=== PATIENT | male | born 1935 | race Caucasian/White ===

== ENCOUNTER 2016-11-30 19:30 | Outpatient (CLI) | payer MEDICARE, MEDICAID | END 2016-11-30 19:31 | disposition home or self-care (01) | LOC: SLEEPLAB 19:30 | PROVIDERS: ATTEND Internal Medicine | DX: G47.33 Obstructive sleep apnea (adult) (pediatric) (principal); E11.9 Type 2 diabetes mellitus without complications; E66.9 Obesity, unspecified; I10 Essential (primary) hypertension; R06.83 Snoring | CPT/HCPCS: 95811 ==

== ENCOUNTER 2017-07-24 09:45 | Emergency (ER) | payer MEDICARE, MEDICAID ==
--- NOTE | 2017-07-24 10:52 | RAD ---
LEFT HIP TWO VIEWS: 07/24/2017 HISTORY: Left hip pain for two days. COMPARISON: None. FINDINGS: There is mild superior joint space narrowing with lateral acetabular osteophyte formation. There is no displaced fracture or evidence of dislocation. IMPRESSION: Degenerative joint disease with no acute fracture or dislocation seen. POS: [facility]
[2017-07-24] MEDS ORDERED: Lorazepam 2 MG/ML VIAL ONE (11:28)
[2017-07-24] MEDS ORDERED: Dexamethasone 4 mg/ml Vial ONE (11:29)
[2017-07-24] MEDS ORDERED: Morphine 4 MG/ML VIAL ONE (11:29)
[2017-07-24] MEDS ORDERED: Ondansetron ODT 4 MG TAB ONE (11:29)
[2017-07-24 11:31] LABS: Hemoglobin 13.8 g/dL (14.0-18.0); Mean Corpuscular HGB CONC 32.7 g/dL (32.0-36.0); Mean Corpuscular Hemoglobin 29.5 pg (27.0-31.0); Mean Corpuscular Volume 90.4 fl (80.0-94.0); Mean Platelet Volume 7.5 fL (7.4-10.4); Platelet Count 167 thou/uL (130-400); RBC Distribution Width 12.7 % (11.5-14.5); Red Blood Cell (RBC) Count 4.68 mill/uL (4.70-6.10); White Blood Cell (WBC) Count 9.2 thou/uL (4.8-10.8)
[2017-07-24 11:51] LABS: Band 9 % (5-11); Lymphocytes 22 % (21-51); MDiff Complete? YES; Monocytes 3 % (0-10); Neutrophil 66 % (42-75); PLT Morphology Comment Appears Adequate; RBC Morphology Normal
--- NOTE | 2017-07-24 11:54 | CT ---
CT LUMBAR SPINE: TECHNIQUE: Multiple axial tomograms were obtained through the lumbar spine with multiplanar reconstruction. INDICATION: Left hip and back pain. FINDINGS: Lumbar vertebrae maintain height. Moderate degenerative disk changes are seen throughout the lumbar spine with vacuum phenomenon and gas in the disk space seen at L1-2, L2-3, L3-4, and L5-S1. Degenera tive osteophytes in the lumbar vertebrae. Prominent facet hypertrophy throughout. Slight retrolisthesis at L3-4 and mild anterolisthesis at L4-5 is noted. At L1-2, there is a broad-based disk bulge flattening the thecal sac. This is asymmetric to the righ t with right foraminal and lateral extension. A disk-osteophyte complex projects laterally on both s ides, more prominent on the right. Facet hypertrophy. Mild central canal stenosis. At L2-3, there is a mild retrolisthesis as described above with degenerative disk change. Diffuse di sk bulge abuts the thecal sac. Facet and ligamentous hypertrophy. Mild to moderate central canal st enosis. At L3-4, more pronounced broad-based disk bulge flattens the thecal sac. Facet and ligamentous hyper trophy is prominent. These changes result in moderate to severe central canal stenosis. Bilateral f oraminal encroachment due to diffuse disk bulge and hypertrophic change. At L4-5, mild anterolisthesis. Associated diffuse disk bulge. Prominent facet hypertrophy. Moderat e to severe central canal stenosis. Bilateral foraminal narrowing. At L5-S1, mild diffuse disk bulge with degenerative disk change. Facet hypertrophy. Mild central ca nal stenosis. Mild foraminal narrowing. IMPRESSION: Multilevel degenerative change of the lumbar spine with central canal stenosis as described at each l evel above. POS: [facility]
[2017-07-24 11:57] LABS: ALT (SGPT) 28 U/L (8-55); AST (SGOT) 19 U/L (5-34); Albumin 3.8 g/dL (3.4-4.8); Alkaline Phosphatase 100 U/L (40-150); Anion Gap 12 mmol/L (10-20); BUN (Urea Nitrogen) 27 mg/dL (8.4-25.7); Bilirubin, Total 0.6 mg/dL (0.2-1.2); Calc. Creatinine Clearance 0 mL/min (70-130); Carbon Dioxide 24 mmol/L (23-31); Chloride 105 mmol/L (98-107); Estimated GFR-MDRD 86; Glucose 139 mg/dL (83-110); Potassium 3.9 mmol/L (3.5-5.1); Protein, Total 6.8 g/dL (5.8-8.1); Sodium 137 mmol/L (136-145)
== END 2017-07-24 12:20 | disposition home or self-care (01) ==
LOC: ERS 09:45
DX: M51.26 Other intervertebral disc displacement, lumbar region (principal); E11.9 Type 2 diabetes mellitus without complications; I10 Essential (primary) hypertension; Z86.73 Personal history of transient ischemic attack (TIA), and cerebral infarction without residual deficits; Z79.899 Other long term (current) drug therapy; Z79.84 Long term (current) use of oral hypoglycemic drugs; Z79.01 Long term (current) use of anticoagulants
CPT/HCPCS: 72131; 80053; 85007; 85027; 85652; 86140; 96374; 96375; J1100; J2060; J2270; Q0162

== ENCOUNTER 2017-07-29 14:34 | Emergency (ER) | payer MEDICARE, MEDICAID | END 2017-07-29 15:25 | disposition home or self-care (01) | LOC: ERS 14:34 | DX: M62.830 Muscle spasm of back (principal); I10 Essential (primary) hypertension; E11.42 Type 2 diabetes mellitus with diabetic polyneuropathy; M54.9 Dorsalgia, unspecified; G89.29 Other chronic pain; Z86.73 Personal history of transient ischemic attack (TIA), and cerebral infarction without residual deficits; Z79.84 Long term (current) use of oral hypoglycemic drugs; Z79.01 Long term (current) use of anticoagulants; Z79.899 Other long term (current) drug therapy; V43.52XA Car driver injured in collision with other type car in traffic accident, initial encounter | CPT/HCPCS: 36416; 99284 ==

== ENCOUNTER 2017-08-10 13:16 | Emergency (ER) | payer MEDICARE, MEDICAID ==
--- NOTE | 2017-08-10 16:27 | RAD ---
FOUR VIEWS OF THE LEFT KNEE: 08/10/17 COMPARISON: 02/06/06. HISTORY: Left knee pain after falling this morning. FINDINGS: Four views of the left knee shows no evidence of acute fracture or dislocation. Mild tricompartmental osteophytes are seen consistent with osteoarthritis. No knee effusion is seen. IMPRESSION: Mild left knee osteoarthritis without acute osseous abnormality. POS: [facility]
[2017-08-10 17:10] LABS: #Eosinphils 0.3 thou/uL (0.0-0.7); #Lymphocytes 2.4 thou/uL (1.20-3.40); #Monocytes 0.7 thou/uL (0.11-0.59); #Neutrophils 4.6 thou/uL (1.40-6.50); %Basophils 0.6 % (0.0-1.0); %Eosinophils 3.5 % (0.0-10.0); %Lymphocytes 30.2 % (21.0-51.0); %Monocytes 8.6 % (0.0-10.0); %Neutrophils 57.1 % (42.0-75.0); Hemoglobin 13.4 g/dL (14.0-18.0); Mean Corpuscular HGB CONC 34.8 g/dL (32.0-36.0); Mean Corpuscular Hemoglobin 30.5 pg (27.0-31.0); Mean Corpuscular Volume 87.5 fL (78.0-98.0); Mean Platelet Volume 6.9 fL (7.4-10.4); Platelet Count 170 thou/uL (130-400); RBC Distribution Width 12.2 % (11.5-14.5)
[2017-08-10 17:17] LABS: INR-International Normal Ratio 1.6; PTT 32.8 SEC (22.9-36.1); Prothrombin Time 19.8 SEC (12.0-14.7)
--- NOTE | 2017-08-10 17:24 | CT ---
CT OF THE BRAIN WITHOUT CONTRAST 08/10/17 COMPARISON: 03/04/16 HISTORY: Fall today and hit left face. Patient is on blood thinners. Head trauma. TECHNIQUE: Multiple contiguous axial images were obtained in a CT of the brain without contrast. FINDINGS: There are a few scattered hypodensities in the subcortical and periventricular white matter, likely s econdary to small vessel ischemic disease. No large confluent infarction is seen. There is no evidenc e of hydrocephalus, intracranial hemorrhage or extra-axial fluid collection. The calvarium and overlying soft tissues are unremarkable. The visualized paranasal sinuses and masto id air cells are well aerated. IMPRESSION: No evidence of acute intracranial abnormality. POS: [facility]
[2017-08-10 17:32] LABS: Anion Gap 13 mmol/L (10-20); BUN (Urea Nitrogen) 27 mg/dL (8.4-25.7); Calc. Creatinine Clearance 0 mL/min (70-130); Carbon Dioxide 24 mmol/L (23-31); Chloride 106 mmol/L (98-107); Estimated GFR-MDRD 77; Glucose 139 mg/dL (83-110); Potassium 4.1 mmol/L (3.5-5.1); Sodium 139 mmol/L (136-145)
[2017-08-10] MEDS ORDERED: Bacitracin Zinc 1 Packet ONE (17:36)
== END 2017-08-10 17:51 | disposition home or self-care (01) ==
LOC: ERS 13:16
DX: S00.83XA Contusion of other part of head, initial encounter (principal); S80.02XA Contusion of left knee, initial encounter; S40.022A Contusion of left upper arm, initial encounter; S60.512A Abrasion of left hand, initial encounter; S50.812A Abrasion of left forearm, initial encounter; I10 Essential (primary) hypertension; E11.42 Type 2 diabetes mellitus with diabetic polyneuropathy; M54.9 Dorsalgia, unspecified; G89.29 Other chronic pain; Z86.73 Personal history of transient ischemic attack (TIA), and cerebral infarction without residual deficits; W10.9XXA Fall (on) (from) unspecified stairs and steps, initial encounter; Y93.01 Activity, walking, marching and hiking
CPT/HCPCS: 36415; 70450; 80048; 85025; 85610; 85730; 93005

== ENCOUNTER 2017-10-30 13:09 | Emergency (ER) | payer MEDICARE, MEDICAID ==
[2017-10-30 13:56] LABS: #Eosinphils 0.2 thou/uL (0.0-0.7); #Lymphocytes 1.6 thou/uL (1.20-3.40); #Monocytes 0.7 thou/uL (0.11-0.59); #Neutrophils 5.4 thou/uL (1.40-6.50); %Basophils 0.2 % (0.0-1.0); %Eosinophils 2.1 % (0.0-10.0); %Monocytes 9.1 % (0.0-10.0); %Neutrophils 68.6 % (42.0-75.0); Hemoglobin 13.9 g/dL (14.0-18.0); Mean Corpuscular HGB CONC 34.8 g/dL (32.0-36.0); Mean Corpuscular Hemoglobin 30.6 pg (27.0-31.0); Mean Corpuscular Volume 87.8 fL (78.0-98.0); Mean Platelet Volume 7.6 fL (7.4-10.4); Platelet Count 168 thou/uL (130-400); RBC Distribution Width 12.5 % (11.5-14.5); Red Blood Cell (RBC) Count 4.55 mill/uL (4.70-6.10); White Blood Cell (WBC) Count 7.9 thou/uL (4.8-10.8)
[2017-10-30 14:25] LABS: ALT (SGPT) 28 U/L (8-55); AST (SGOT) 19 U/L (5-34); Albumin 3.6 g/dL (3.4-4.8); Alkaline Phosphatase 101 U/L (40-150); Anion Gap 13 mmol/L (10-20); BUN (Urea Nitrogen) 20 mg/dL (8.4-25.7); Bilirubin, Total 0.9 mg/dL (0.2-1.2); CKMB 2.3 ng/mL (0-6.6); Calc. Creatinine Clearance 0 mL/min (70-130); Calcium 8.8 mg/dL (7.8-10.44); Carbon Dioxide 27 mmol/L (23-31); Chloride 102 mmol/L (98-107); Estimated GFR-MDRD 71; Glucose 278 mg/dL (83-110); Potassium 3.7 mmol/L (3.5-5.1); Protein, Total 6.6 g/dL (5.8-8.1); Sodium 138 mmol/L (136-145); Troponin I Less than 0.010 ng/mL (< 0.028)
--- NOTE | 2017-10-30 14:58 | RAD ---
CHEST ONE VIEW: HISTORY: Chest pain. COMPARISON: 08/14/2013 FINDINGS: The cardiac silhouette is magnified by projection. The pulmonary vasculature is unremarkable. The m ediastinum is midline with aortic calcification. Mild linear and bibasilar atelectasis is stable. N o lobar consolidation or evidence of pneumothorax. Metallic densities over the left upper chest, adj acent to the clavicle, are favored to represent extrinsic artifact. IMPRESSION: 1. Atherosclerosis. 2. Chronic type findings are stable. POS: [facility]
== END 2017-10-30 16:19 | disposition home or self-care (01) ==
LOC: ERS 13:09
DX: R07.9 Chest pain, unspecified (principal); E11.40 Type 2 diabetes mellitus with diabetic neuropathy, unspecified; I10 Essential (primary) hypertension
CPT/HCPCS: 71045; 80053; 82553; 84484; 85025; 93005; 94760

== ENCOUNTER 2017-12-05 12:37 | Emergency (ER) | payer MEDICARE, MEDICAID ==
--- NOTE | 2017-12-05 13:17 | RAD ---
PA VIEW OF CHEST: Date: 12/05/17 INDICATION: Chest pain. COMPARISON: Prior exam dated 07/12/16. FINDINGS: Mild cardiomegaly is stable. Vascular calcification of aortic arch is similar appearing. The lungs ar e clear. No pleural effusion or pneumothorax is evident. No acute osseous abnormality is evident. IMPRESSION: No acute cardiopulmonary abnormality. POS: [facility]
[2017-12-05 13:33] LABS: #Eosinphils 0.2 thou/uL (0.0-0.7); #Lymphocytes 1.9 thou/uL (1.20-3.40); #Monocytes 0.7 thou/uL (0.11-0.59); #Neutrophils 5.7 thou/uL (1.40-6.50); %Basophils 0.5 % (0.0-1.0); %Eosinophils 2.7 % (0.0-10.0); %Lymphocytes 22.1 % (21.0-51.0); %Neutrophils 66.6 % (42.0-75.0); Hemoglobin 13.9 g/dL (14.0-18.0); Mean Corpuscular HGB CONC 33.3 g/dL (32.0-36.0); Mean Corpuscular Hemoglobin 29.7 pg (27.0-31.0); Mean Corpuscular Volume 89.2 fL (78.0-98.0); Mean Platelet Volume 7.5 fL (7.4-10.4); Platelet Count 180 thou/uL (130-400); RBC Distribution Width 12.6 % (11.5-14.5); Red Blood Cell (RBC) Count 4.68 mill/uL (4.70-6.10); White Blood Cell (WBC) Count 8.6 thou/uL (4.8-10.8)
[2017-12-05 14:08] LABS: CKMB 1.5 ng/mL (0-6.6); Troponin I Less than 0.010 ng/mL (< 0.028)
[2017-12-05 14:14] LABS: ALT (SGPT) 27 U/L (8-55); AST (SGOT) 31 U/L (5-34); Albumin 4.1 g/dL (3.4-4.8); Alkaline Phosphatase 98 U/L (40-150); Anion Gap 12 mmol/L (10-20); BUN (Urea Nitrogen) 25 mg/dL (8.4-25.7); Bilirubin, Total 0.9 mg/dL (0.2-1.2); Calc. Creatinine Clearance 0 mL/min (70-130); Calcium 9.1 mg/dL (7.8-10.44); Carbon Dioxide 28 mmol/L (23-31); Chloride 102 mmol/L (98-107); Estimated GFR-MDRD 81; Globulin 3.1 g/dL (2.4-3.5); Glucose 154 mg/dL (83-110); Potassium 4.5 mmol/L (3.5-5.1); Protein, Total 7.2 g/dL (5.8-8.1); Sodium 137 mmol/L (136-145)
[2017-12-05] MEDS ORDERED: Acetaminophen 325 MG TAB ONE (14:53)
== END 2017-12-05 14:59 | disposition home or self-care (01) ==
LOC: ERS 12:37
DX: M25.511 Pain in right shoulder (principal); E11.42 Type 2 diabetes mellitus with diabetic polyneuropathy; I10 Essential (primary) hypertension
CPT/HCPCS: 71046; 80053; 82553; 84484; 85025; 93005

== ENCOUNTER 2018-02-21 13:14 | Emergency (ER) | payer MEDICARE, MEDICAID ==
[2018-02-21] MEDS ORDERED: predniSONE 20 MG TAB ONE (13:45)
== END 2018-02-21 13:50 | disposition home or self-care (01) ==
LOC: ERS 13:14
DX: L25.9 Unspecified contact dermatitis, unspecified cause (principal); E11.9 Type 2 diabetes mellitus without complications; I10 Essential (primary) hypertension
CPT/HCPCS: 99282; J7506

== ENCOUNTER 2018-03-18 15:48 | Emergency (ER) | payer MEDICARE, MEDICAID | END 2018-03-18 17:30 | disposition home or self-care (01) | LOC: ERS 15:48 | DX: T14.8XXA Other injury of unspecified body region, initial encounter (principal); E11.40 Type 2 diabetes mellitus with diabetic neuropathy, unspecified; I10 Essential (primary) hypertension; Z86.711 Personal history of pulmonary embolism; Z79.899 Other long term (current) drug therapy | CPT/HCPCS: 99282 ==

== ENCOUNTER 2018-08-25 11:42 | Emergency (ER) | payer MEDICARE, MEDICAID ==
--- NOTE | 2018-08-25 12:51 | RAD ---
XR Elbow Rt 2 View History: Pain Comparison: None. Findings: No acute fracture or malalignment. Chronic lateral epicondylitis. Mild narrowing of the med ial joint. Lateral radiograph is limited. Impression: No acute definite fracture appreciated of the lateral radiograph is limited. A full elbow exam recommended with repeat lateral radiographs.
--- NOTE | 2018-08-25 12:58 | CT ---
CT Brain WO Con History: Fall Comparison: CT brain August 10, 2017 Findings: Old lacunar infarct. No acute hemorrhage or infarct. Mild atrophy. No midline shift or mass effect. Paranasal sinuses and mastoids are clear. Impression: No acute intracranial abnormality
--- NOTE | 2018-08-25 13:02 | CT ---
CT Cervical Spine WO Con History: Fall Comparison: None. Findings: Mild levoscoliosis of the cervical spine with asymmetric right worst than left facet arthro marisol throughout all levels as well as asymmetric right-sided degenerative disc space disease. Mastoids are clear. Narrowing of the C1/C2 articulation. Multilevel right-sided neural foraminal narrowing due to hypertrophic facet arthropathy. Lung apices are clear. Paraspinal soft tissues are unremarkable. Old right posterior rib fractures. Impression: Severe degenerative changes with multilevel right sided neural foraminal narrowing. No ac [place] fracture.
[2018-08-25] MEDS ORDERED: Morphine 2 MG/ML SYRINGE ONE (14:19)
[2018-08-25] MEDS ORDERED: Ketorolac Tromethamine 30 MG/ML VIAL ONE (14:20)
--- NOTE | 2018-08-25 18:51 | CT ---
Exam: Chest CT without contrast Abdomen CT without contrast Pelvic CT without contrast Limited CT of the thoracic and lumbar spine HISTORY: Fall. Pain. Trauma. Correlation: None COMPARISON: None FINDINGS: Chest CT: Mediastinum: Limited evaluation due to lack of IV contrast. No mass, lymphadenopathy or hematoma. Aorta: Grossly normal caliber. Atherosclerosis. No periaortic fat stranding. Heart: Upper normal heart size. There are coronary artery calcifications. Trachea and central bronchi: Patent Pleural spaces: No pleural effusion Right lung: Dependent atelectatic changes. Left lung:Dependent atelectatic changes. Pneumothorax: None Abdomen CT: Gallbladder: Unremarkable Portal vein: Cannot be assessed due to lack of contrast Solid organs: Limited evaluation due to lack of IV contrast. Grossly no solid organ abnormality. Lymp hadenopathy: No gastrohepatic, retrocrural or periportal lymphadenopathy Kidneys: Nonobstructing 3 mm calculus in the right renal pelvis. Bilaterally no obstructive uropathy Mesentery: No mass, lymphadenopathy, free air or free fluid Alimentary canal: Limited evaluation due to technique. No evidence of bowel obstruction. Small hiatal hernia is noted. Ileocecal junction is normal. Normal caliber appendix. Scattered fecal material in a nondistended, nondilated colon. Diverticulosis, without evidence of diverticulitis. Pelvis CT: No mass, lymphadenopathy, free air or free fluid. Bilateral inguinal hernia containing mesenteric fat . Osseous structures:Old left rib fractures. No acute fractures of the left or right bony thorax. Intac t bony pelvis Limited CT of the thoracic and lumbar spine: Vertebral body heights are maintained. No fracture. IMPRESSION: 1. No posttraumatic change in the chest, abdomen or pelvis. 2. Additional findings as above.
== END 2018-08-25 19:10 | disposition home or self-care (01) ==
LOC: ERS 11:42
DX: S50.01XA Contusion of right elbow, initial encounter (principal); M54.9 Dorsalgia, unspecified; W19.XXXA Unspecified fall, initial encounter
CPT/HCPCS: 70450; 71250; 72125; 74177; 96374; 96375; J1885; J2270

== ENCOUNTER 2018-08-30 14:45 | Outpatient (CLI) | payer MEDICARE, MEDICAID ==
--- NOTE | 2018-08-30 17:37 | MRI ---
MR CERVICAL SPINE WITHOUT CONTRAST: 08/30/18 INDICATION: History of fall with right shoulder pain and left leg pain. COMPARISON: Prior MR cervical spine dated 04/12/16. FINDINGS: No definite acute fracture is evident. The visualized aspects of the posterior fossa are unremarkable appearing. Craniocervical junction demonstrates stable moderate degenerative change. At C2-C3, there is moderate left and mild right facet joint degenerative change with some uncovertebr al hypertrophy inducing stable mil left neural foraminal narrowing. At C3-C4, there is a broad based disc osteophyte complex and facet hypertrophy inducing mild central canal narrowing. There is severe right sided neural foraminal narrowing and mild left neural foramina l narrowing which is stable. At C4-C5, there is a broad based bulge with facet hypertrophy inducing severe right neural foraminal narrowing that is stable. There is mild central canal narrowing due to the broad based bulge. At C5-C6, there is a broad based disc osteophyte complex and facet hypertrophy inducing mild to moder ate right neural foraminal narrowing. This is stable to the prior exam. At C6-C7, there is a broad based disc osteophyte complex inducing mild to moderate left and mild righ t neural foraminal narrowing which is stable to the prior exam. At C7-T1, there is no appreciable central canal or neural foraminal narrowing. IMPRESSION: 1. Stable severe spondylosis of the cervical spine. 2. There is multilevel prominent neural foraminal narrowing, all of which is stable to the prior examination dated 04/12/16. POS: [facility]
--- NOTE | 2018-08-30 17:44 | MRI ---
MRI OF THE LUMBAR SPINE WITHOUT CONTRAST: 08/30/18 INDICATION: History of spinal stenosis and fall. COMPARISON: Prior MR lumbar spine dated 04/12/16. FINDINGS: No acute fracture is evident. There is stable anterolisthesis of L4 on L5. There is stable mild retro listhesis of L2 on L3 and L1 and L2. There is a stable 1 cm cyst involving the lower pole of the left kidney. There is stable levoscoliosis of the lumbar spine. Conus is seen to terminate at T12-L1. At L5-S1, there is a broad based bulge with mild to moderate left and mild right facet joint degenera tive change. There is no appreciable central canal or neural foraminal narrowing. At L4-5, there is advanced facet joint degenerative change and a broad based pseudobulge and loss of disc space height inducing mild to moderate bilateral neural foraminal narrowing, right greater than left. This is stable to prior exam. At L3-4, there is a broad based bulge with facet hypertrophy and ligamentum flavum hypertrophy induci ng moderate central canal narrowing. There is mild to moderate bilateral neural foraminal narrowing. The central canal and neural foraminal narrowing is stable to the prior exam. At L2-3, there is a broad based bulge with facet hypertrophy inducing stable mild central canal narro wing. The broad based bulge is slightly asymmetric to the right inducing mild to moderate right and mild left neural foraminal narrowing which is stable to the prior exam. At L1-L2, there is a broad based bulge with facet hypertrophy inducing mild to moderate right and mil d left neural foraminal narrowing. This is stable to the prior exam. At T12-L1, there is no appreciable central canal or neural foraminal narrowing. IMPRESSION: Stable spondylosis of the lumbar spine with multilevel neural foraminal narrowing and mild central ca nal narrowing as detailed above. POS: [facility]
== END 2018-08-30 14:46 | disposition home or self-care (01) ==
LOC: TBSIIMAG 14:45
PROVIDERS: ATTEND Family Medicine
DX: M47.22 Other spondylosis with radiculopathy, cervical region (principal); M48.02 Spinal stenosis, cervical region; M48.061 Spinal stenosis, lumbar region without neurogenic claudication; M47.816 Spondylosis without myelopathy or radiculopathy, lumbar region
CPT/HCPCS: 72141; 72148

== ENCOUNTER 2018-11-28 15:27 | Emergency (ER) | payer MEDICARE, MEDICAID ==
[2018-11-28] MEDS ORDERED: Ketorolac Tromethamine 30 MG/ML VIAL ONE (16:57)
== END 2018-11-28 17:25 | disposition home or self-care (01) ==
LOC: ERS 15:27
DX: M54.5 Low back pain (principal); E11.9 Type 2 diabetes mellitus without complications; I10 Essential (primary) hypertension; Z79.84 Long term (current) use of oral hypoglycemic drugs; Z86.73 Personal history of transient ischemic attack (TIA), and cerebral infarction without residual deficits; Z86.711 Personal history of pulmonary embolism; Z79.899 Other long term (current) drug therapy
CPT/HCPCS: 96372; 99283; J1885

== ENCOUNTER 2018-12-06 19:44 | Observation (INO) | payer MEDICARE, MEDICAID ==
[2018-12-06] MEDS ORDERED: Morphine 2 MG/ML SYRINGE ONE (21:16)
[2018-12-06 21:40] LABS: #Basophils 0.1 thou/uL (0.0-0.2); #Eosinphils 0.4 thou/uL (0.0-0.7); #Lymphocytes 2.2 thou/uL (1.20-3.40); #Monocytes 0.7 thou/uL (0.11-0.59); #Neutrophils 4.7 thou/uL (1.40-6.50); %Basophils 0.8 % (0.0-1.0); %Eosinophils 4.9 % (0.0-10.0); %Lymphocytes 27.1 % (21.0-51.0); %Monocytes 8.6 % (0.0-10.0); %Neutrophils 58.7 % (42.0-75.0); Hemoglobin 14.1 g/dL (14.0-18.0); Mean Corpuscular HGB CONC 34.5 g/dL (32.0-36.0); Mean Corpuscular Hemoglobin 29.8 pg (27.0-31.0); Mean Corpuscular Volume 86.2 fL (78.0-98.0); Platelet Count 163 thou/uL (130-400); Red Blood Cell (RBC) Count 4.73 mill/uL (4.70-6.10); White Blood Cell (WBC) Count 7.9 thou/uL (4.8-10.8)
--- NOTE | 2018-12-06 21:42 | CT ---
EXAM: CT brain without contrast HISTORY: Fall with head trauma and dizziness COMPARISON: 08/25/2018 TECHNIQUE: Multiple contiguous axial images were obtained and a CT of the brain without contrast. FINDINGS: There are scattered hypodensities in the subcortical and periventricular white matter consi stent with small vessel ischemic disease. There is no evidence of hydrocephalus, intracranial hemorrhage, or extra-axial fluid collection. The calvarium and overlying soft tissues are unremarkable. The visualized paranasal sinuses and masto id air cells are well aerated. IMPRESSION: No evidence of acute intracranial abnormality
--- NOTE | 2018-12-06 21:59 | RAD ---
Exam: Single view of the pelvis HISTORY: Pelvic pain after fall COMPARISON: None FINDINGS: A single view the pelvis shows no evidence of acute fracture or dislocation. No degenerativ e changes seen in either hip. IMPRESSION: No evidence of acute osseous abnormality.
--- NOTE | 2018-12-06 21:59 | RAD ---
EXAM: Single view of the chest HISTORY: Hypertension and fall COMPARISON: 10/30/2017 FINDINGS: Single view of the chest shows a normal sized cardiomediastinal silhouette. Atheroscleroti c calcific lesions are seen in the aorta. There is no evidence of consolidation, mass, or pleural effusion. Degenerative changes are seen in the spine and shoulders. IMPRESSION: No evidence of acute cardiopulmonary disease
--- NOTE | 2018-12-06 22:00 | RAD ---
EXAM: 3 views of the right shoulder HISTORY: Shoulder pain after fall COMPARISON: None FINDINGS: There is no evidence of acute fracture or dislocation. No degenerative changes are present. No soft tissue swelling is seen. The visualized thorax is unremarkable. IMPRESSION: No evidence of acute osseous abnormality.
[2018-12-06 22:02] LABS: ALT (SGPT) 25 U/L (8-55); AST (SGOT) 23 U/L (5-34); Albumin 3.9 g/dL (3.4-4.8); Alkaline Phosphatase 111 U/L (40-110); Anion Gap 12 mmol/L (10-20); BUN (Urea Nitrogen) 24 mg/dL (8.4-25.7); Bilirubin, Total 0.6 mg/dL (0.2-1.2); Calc. Creatinine Clearance 0 mL/min (70-130); Calcium 9.3 mg/dL (7.8-10.44); Carbon Dioxide 25 mmol/L (23-31); Chloride 107 mmol/L (98-107); Estimated GFR-MDRD 84; Globulin 2.7 g/dL (2.4-3.5); Glucose 110 mg/dL (83-110); Lipase 9 U/L (8-78); Magnesium 1.9 mg/dL (1.6-2.6); Potassium 4.1 mmol/L (3.5-5.1); Protein, Total 6.6 g/dL (5.8-8.1); Sodium 140 mmol/L (136-145)
--- NOTE | 2018-12-06 22:53 | PDOC.FPRHP ---
- History of Present Illness Chief Complaint: Fall History of Present Illness: Mr. Mo his an 83 y/o male w/ a PMH significant for frequent falls , AMITA, OA and L4-L5 disc herniation who presents to the ED after an unwitnessed mechanical fall. He states that he was raking the dirt in his yard earlier this afternoon when he suddenly felt himself falling. He denies any feelings of dizziness or loss of consciousness, palpitations, chest pain or shortness of breath, loss of bowel or bladder function or acute intoxication. He states that he suffers from falls quite frequently, and subsequently wears a LifeAlert, which he used to contact local EMS. Per Mr. Mo, his blood pressure was elevated when EMS arrived, but he admits that he was quite agitated and frustrated with himself for falling. He admits to sinus congestion, polyuria, occasional abdominal pain and constipation, but denies visual disturbances, nausea or diarrhea, a post-ictal state, fevers, chills, recent illness, dehydration, medication changes, epistaxis, dysuria, hematochezia or melena or a history of seizures. ED Course: While in the ED, Mr. Mo receive 2 mg of morphine for pain as well as ASA 325 mg PO. He also received an EKG, CT Head, CXR, X-Ray (Shoulder) and a X-Ray ( Pelvis). - Allergies/Adverse Reactions Allergies Allergy/AdvReac Type Severity Reaction Status Date / Time No Known Allergies Allergy Verified 12/07/18 00:45 - Home Medications Medication Instructions Recorded Confirmed Type Lisinopril [Zestril] 5 mg PO DAILY 04/22/15 12/07/18 History metFORMIN HCl 1,000 mg PO BID-WM 04/22/15 12/07/18 History glipiZIDE [Glucotrol XL] 5 mg PO QAM-WM 07/13/16 12/07/18 History Atorvastatin Calcium [Lipitor] 40 mg PO HS tab 07/19/16 12/07/18 Rx Acetaminophen With Codeine 1 tablet PO Q4HR PRN 12/07/18 12/07/18 History [Tylenol with Codeine #3] Cyclobenzaprine [Flexeril] 10 mg PO HS 12/07/18 12/07/18 History Gabapentin [Neurontin] 300 mg PO QAM 12/07/18 12/07/18 History Gabapentin [Neurontin] 600 mg PO QPM 12/07/18 12/07/18 History Lidocaine 5% Patch [Lidoderm 5% 1 patch TD DAILY PRN 12/07/18 12/07/18 History Patch] Naproxen 250 mg PO BID PRN 12/07/18 12/07/18 History Comments: Cymbalta 30 mg daily Gabapentin 300 mg 2 tabs HS ASA 81 mg daily Lantus 5 units daily Metformin ER 500 mg 2tabs BID HCTZ 25 mg 1 tab daily Glipizide XL 5 mg daily Lisinopril 5 mg daily Atorvastatin 40 mg daily - History PMHx: AMITA, L4-L5 Disc Bulge, DMII, HTN, Hx Lacunar Infarct, BPH/Overactive Bladder PSHx: None FHx: Denies Hx of Seizures Social: Denies x3. Retired. - Review of Systems General: denies: fever/chills, night sweats, fatigue Eyes: denies: eye pain, vision changes ENT: denies: nasal congestion, rhinorrhea Respiratory: reports: congestion. denies: cough, shortness of breath Cardiovascular: denies: chest pain, palpitation, edema Gastrointestinal: reports: constipation, abdominal pain. denies: nausea, vomiting, diarrhea, GI bleeding Genitourinary: reports: polyuria. denies: dysuria Skin: reports: itching Musculoskeletal: reports: pain, tenderness, stiffness, arthritis/arthralgias. denies: swelling Neurological: denies: numbness, syncope, seizure, weakness - Vital signs BP: [173/79] HR: [74] RR: [20] Tmax: [98.2] Pox: [95]% on [Room] Wt: [95 kg] - Physical Exam Constitutional: NAD, awake, alert and oriented, well developed HEENT: normocephalic and atraumatic, PERRLA, EOMI, conjunctiva clear, no scleral icterus, grossly normal vision, grossly normal hearing, normal nasal mucosa, MMM, oropharynx clear, good dention Neck: supple, FROM, trachea midline, no LAD Chest: no-tender to palpation, no lesions Heart: RRR, normal S1/S2, no murmurs/rubs/gallops, pulses present Lungs: CTAB, no respiratory distress, good air movement, no rales/rhonchi, no wheezing, no retractions Abdomen: soft, non-tender, bowel sounds present, no masses/distention Musculoskeletal: normal structure, ROM grossly normal Neurological: no focal deficit, CN II-XII intact Skin: no jaundice, other (2 small lacerations on right forearm) Heme/Lymphatic: no unusual bruising or bleeding, no purpura, no petechia, no LAD Psychiatric: normal mood and affect, good judgment and insight, intact recent and remote memory FMR H&P: Results - Labs Result Diagrams: 12/07/18 04:37 12/07/18 04:37 Lab results: WBC 7.9 thou/uL (4.8-10.8) 12/06/18 21:29 Hgb 14.1 g/dL (14.0-18.0) 12/06/18 21:29 Hct 40.8 % (42.0-52.0) L 12/06/18 21: MCV 86.2 fL (78.0-98.0) 12/06/18 21:29 Plt Count 163 thou/uL (130-400) 12/06/18 21:29 Neutrophils % 58.7 % (42.0-75.0) 12/06/18 21:29 Sodium 140 mmol/L (136-145) 12/06/18 21:29 Potassium 4.1 mmol/L (3.5-5.1) 12/06/18 21:29 Chloride 107 mmol/L (98-107) 12/06/18 21:29 Carbon Dioxide 25 mmol/L (23-31) 12/06/18 21:29 BUN 24 mg/dL (8.4-25.7) 12/06/18 21:29 Creatinine 0.87 mg/dL (0.7-1.3) 12/06/18 21:29 Glucose 110 mg/dL (83-110) 12/06/18 21:29 Calcium 9.3 mg/dL (7.8-10.44) 12/06/18 21:29 Total Bilirubin 0.6 mg/dL (0.2-1.2) 12/06/18 21:29 AST 23 U/L (5-34) 12/06/18 21:29 ALT 25 U/L (8-55) 12/06/18 21:29 Alkaline Phosphatase 111 U/L (40-110) H 12/06/18 21:29 B-Natriuretic Peptide 56.8 pg/mL (0-100) 12/06/18 21:29 Serum Total Protein 6.6 g/dL (5.8-8.1) 12/06/18 21:29 Albumin 3.9 g/dL (3.4-4.8) 12/06/18 21:29 Lipase 9 U/L (8-78) 12/06/18 21:29 - EKG Interpretation EKG: NSR - Radiology Interpretation Chest x-ray Status: report reviewed by me ([facility]) Other Status: report reviewed by me (Shoulder X-Ray: [facility] --- Hip X-Ray: [facility]) CT scan - head Status: report reviewed by me ([facility]) FMR H&P: A/P - Plan 1. Mechanical Fall -Patient's Hx of frequent falls concerning -Patient appeared stable in ED - multiple imaging modalities revealed NAF -Syncope appears unlikely at this point - low index of suspicion for neurologic , cardiopulmonary, infectious or toxic etiologies -Deconditioning and weakness from OA, Diabetic Neuropathy and L4-L5 Disc Herniation appear to be most likely causative factors -Physical exam unremarkable -WBC: 7.9 -Trops: < 0.01 -BNP: 57 -UA: Pending -Urine Culture: Pending -Echo: Pending -CTA Head/Neck: Pending -Walking Program -PT/OT Consult: Pending 2. HTN -BP: 173/79 on 12/07 -Restart home medication regimen -Hydralazine 10 mg PO Q4H PRN for BP > 180/110 3. DM2 -POC Glucose: 110 -Mild Sliding Scale Insulin -Restart home medication regimen 4. BPH -Not on any medication for this at this time. No concern for s/e from medication. Code: Full Diet: Consistent Carbohydrate Activity: Ambulate w/ Assist DVT PPx: SCDs and Lovenox 40 mg SC Daily Dispo: Patient admitted to Telemetry Floor for further observation. Await UA, urine culture, echo and CTA Head/Neck results. Expected LOS < 48H FMR H&P: Upper Level - Pertinent history I went and saw pt. He reports no LOC or dizziness or headaches during the event. He reports being shaky after the fall. The above HPI is what was also reported to me by the patient. Made edits above. - Pertinent findings Pt resting in bed. Moves all ext. No focal neuro defecit at this time. Reported having some R. leg numbness in the middle of the night. Reports feeling has returned at this time. - Plan Date/Time: 12/06/18 1752 I, Arias Jones PGY-3, have evaluated this patient and agree with findings/ plan as outlined by inclusion internship resident. Pertinent changes/additions are listed here. I agree with above plan. I made edits as needed. We will get echo and CTA head and neck to rule out any causes of underlying pathology leading to fall. We will await orthostatics. At this time I believe fall to be related to lower back injury. Pt reports having legs giving out with reported numbness coming and going. Pt likely would benefit from neurosurgery consultation outpatient. Addendum - Attending - Attending Attestation Date/Time: 12/07/18 7831 I personally evaluated the patient and discussed the management with Dr. Enriquez /Robert. I agree with the History, Examination, Assessment and Plan documented above with any addition or exceptions noted below. Patient here with history of lumbar disc herniation and peripheral neuropathy and frequent falls presenting with fall/syncope event. Patient does not really remember falling. He denies pre-dromal symptoms. He is feeling well this morning and has been ambulating around the room. Check on telemetry monitoring to ensure no events. Echo pending. If no events on telemetry, can be discharged home for further outpatient workup. Minimal suspicion for vascular issues in head/neck as cause of his symptoms but can pursue as outpatient if desired.
[2018-12-06] MEDS ORDERED: Aspirin Chewable 81 MG TAB ONE (22:56)
[2018-12-07 00:05] LABS: Bilirubin Negative (Negative); Blood, Urine Negative (Negative); Clarity Clear (Clear); Glucose, Urine (Dipstick) Normal (Negative); Leukocyte Negative Leu/uL (Negative); Nitrite Negative (Negative); Protein, Urine (Dipstick) 10 mg/dL (Neg-Trace); Urobilinogen Normal mg/dL (Less than 2)
[2018-12-07 00:30] VITALS: BMI 29.0
[2018-12-07] MEDS ORDERED: Senokot S 8.6-50 MG TAB PO PRN (00:38)
[2018-12-07] MEDS ORDERED: Dextrose 5% in Water 1,000 ML IV PRN (00:38)
[2018-12-07] MEDS ORDERED: Calcium Carbonate 500 MG ChewTAB PO PRN (00:38)
[2018-12-07] MEDS ORDERED: HumaLOG 300 UNITS/3 ML VIAL SC PRN (00:38)
[2018-12-07] MEDS ORDERED: Ondansetron ODT 4 MG TAB PO PRN (00:38)
[2018-12-07] MEDS ORDERED: Dextrose 50% Abboject 50 ML SYRINGE SLOW IVP PRN (00:38)
[2018-12-07] MEDS ORDERED: hydrALAZINE 10 MG TAB PO PRN (01:07)
[2018-12-07] MEDS: Acetaminophen 325 MG TAB PO PRN ×3 (03:20→16:37)
[2018-12-07 04:50] LABS: #Eosinphils 0.4 thou/uL (0.0-0.7); #Lymphocytes 1.9 thou/uL (1.20-3.40); #Monocytes 0.7 thou/uL (0.11-0.59); #Neutrophils 3.7 thou/uL (1.40-6.50); %Basophils 0.5 % (0.0-1.0); %Eosinophils 6.3 % (0.0-10.0); %Monocytes 10.7 % (0.0-10.0); %Neutrophils 54.5 % (42.0-75.0); Mean Corpuscular HGB CONC 34.7 g/dL (32.0-36.0); Mean Corpuscular Hemoglobin 29.9 pg (27.0-31.0); Mean Corpuscular Volume 86.1 fL (78.0-98.0); Platelet Count 148 thou/uL (130-400); RBC Distribution Width 11.9 % (11.5-14.5); Red Blood Cell (RBC) Count 4.35 mill/uL (4.70-6.10); White Blood Cell (WBC) Count 6.8 thou/uL (4.8-10.8)
[2018-12-07 05:17] LABS: Anion Gap 9 mmol/L (10-20); BUN (Urea Nitrogen) 24 mg/dL (8.4-25.7); Calc. Creatinine Clearance 87 mL/min (70-130); Carbon Dioxide 26 mmol/L (23-31); Chloride 109 mmol/L (98-107); Estimated GFR-MDRD 87; Potassium 3.8 mmol/L (3.5-5.1); Sodium 140 mmol/L (136-145)
[2018-12-07 05:18] LABS: ALT (SGPT) 21 U/L (8-55); AST (SGOT) 21 U/L (5-34); Albumin 3.5 g/dL (3.4-4.8); Alkaline Phosphatase 97 U/L (40-110); Bilirubin, Total 0.4 mg/dL (0.2-1.2); Calcium 8.6 mg/dL (7.8-10.44); Globulin 2.4 g/dL (2.4-3.5); Glucose 119 mg/dL (83-110); Protein, Total 5.9 g/dL (5.8-8.1)
--- NOTE | 2018-12-07 05:23 | PDOC.FM ---
- Subjective Subjective: Continues to deny knowledge of cause of fall. Notes chronic back pain and more frequent falls over last year. Is currently working with PT as outpt but mostly for neck problems currently. Now says he is not sure if he lost consciousness or not. No palpitations, SOB, dizziness, leg swelling, or chest pain. - Objective Vital Signs & Weight: Vital Signs (12 hours) Temp Pulse Resp BP BP BP BP 12/07/18 02:29 98.2 F 60 13 157/72 H 12/07/18 00:07 98.2 F 74 20 173/79 H 180/81 H 138/70 Pulse Ox 12/07/18 02:29 94 L 12/07/18 00:07 95 Weight Weight 94.393 kg Result Diagrams: 12/07/18 04:37 12/07/18 04:37 Phys Exam - Physical Examination Constitutional: NAD Dry MM Neck: no JVD, full ROM Respiratory: no wheezing, clear to auscultation bilateral mild crackles in LLL Cardiovascular: RRR, no significant murmur Gastrointestinal: soft, non-tender Musculoskeletal: pulses present, edema present (1+ non pitting) Low back stiffness Neurological: non-focal, normal sensation, moves all 4 limbs Psychiatric: normal affect, A&O x 3 Skin: no rash, cap refill <2 seconds Dx/Plan (1) Osteoarthritis Code(s): M19.90 - UNSPECIFIED OSTEOARTHRITIS, UNSPECIFIED SITE Status: Acute (2) Fall Code(s): W19.XXXA - UNSPECIFIED FALL, INITIAL ENCOUNTER Status: Acute (3) Type 2 diabetes, uncontrolled, with neuropathy Code(s): E11.40 - TYPE 2 DIABETES MELLITUS WITH DIABETIC NEUROPATHY, UNSP; E11.65 - TYPE 2 DIABETES MELLITUS WITH HYPERGLYCEMIA Status: Acute (4) Hypertension Code(s): I10 - ESSENTIAL (PRIMARY) HYPERTENSION Status: Chronic (5) Hx of pulmonary embolus Code(s): Z86.711 - PERSONAL HISTORY OF PULMONARY EMBOLISM Status: Acute - Plan Plan: 1. Mechanical Fall -Deconditioning and weakness from OA, Diabetic Neuropathy and L4-L5 Disc Herniation appear to be most likely causative factors -UA negative -Echo: Pending -CTA Head/Neck: Pending -PT/OT Consult: Pending 2. HTN -BP improving on home rx, cont monitor 3. DM2 -POC Glucose: 110 -Mild Sliding Scale Insulin -Restart home medication regimen 4. BPH -Not on any medication for this at this time Code: Full Diet: Consistent Carbohydrate Activity: Ambulate w/ Assist DVT PPx: SCDs and Lovenox 40 mg SC Daily Dispo: Patient admitted to Telemetry Floor for further observation. Await echo and CTA Head/Neck results. Expected LOS < 48H Addendum - Attending - Attending Attestation Date/Time: 12/07/18 1162 I personally evaluated the patient and discussed the management with Dr. Beltre. I agree with the History, Examination, Assessment and Plan documented above with any addition or exceptions noted below. Please see electronic H/P addendum for full attending details for 12/07/2018.
[2018-12-07] MEDS ORDERED: metFORMIN 500 MG TAB PO SCH (08:00)
[2018-12-07] MEDS ORDERED: Lisinopril 5 MG TAB PO SCH (09:00)
[2018-12-07] MEDS ORDERED: Enoxaparin Sodium 40 MG/0.4 ML SYRINGE SC SCH (09:00)
[2018-12-07] MEDS ORDERED: Gabapentin 300 MG CAP PO SCH ×2 (09:00→21:00)
[2018-12-07] MEDS ORDERED: Famotidine 20 MG TAB PO SCH (09:00)
[2018-12-07 16:00] VITALS: TEMP 98.5
[2018-12-07 16:16] VITALS: BP 145/93
[2018-12-07] MEDS ORDERED: Atorvastatin Calcium 40 MG TAB PO SCH (21:00)
--- NOTE | 2018-12-09 02:04 | DIS ---
DATE OF ADMISSION: 12/07/2018 DATE OF DISCHARGE: 12/07/2018 DISCHARGE ATTENDING: Didier Zuniga MD RESIDENT: Cheo Beltre DO CONSULTS: None. PROCEDURES: None. PRIMARY DIAGNOSIS: Osteoarthritis. Lumbar disk herniation. SECONDARY DIAGNOSES: 1. Type 2 diabetes, uncontrolled. 2. Hypertension. 3. Fall. DISCHARGE MEDICATIONS: 1. Metformin 1000 mg b.i.d. 2. Zestril 5 mg daily. 3. Glipizide 5 mg a.m. 4. Atorvastatin 40 mg at bedtime. 5. Naproxen 250 mg b.i.d. p.r.n. 6. Flexeril 10 mg at bedtime. 7. Tylenol 3 one tablet p.o. q.4 hours p.r.n. 8. Gabapentin 600 mg p.o. q.p.m. 9. Gabapentin 300 mg p.o. q.a.m. 10. Lidocaine patch 5% one patch daily p.r.n. HISTORY OF PRESENT ILLNESS AND HOSPITAL COURSE: An 83-year-old male with past medical history significant for frequent falls, AMITA, OA, and L4-L5 disk herniation, presenting to the ED following an unwitnessed mechanical ground level fall. The patient stated that he was raking a yard when he suddenly felt himself falling. He denies any feelings of dizziness or loss of consciousness preceding the fall. Denies noticing any palpitations, chest pain, shortness breath, or loss of bowel or bladder function with this. He states he suffers from frequent falls and subsequently wears a Life Alert, which he used to contact EMS at the time of his fall. In the ED, he received 2 mg of morphine for his pain as well as an EKG, CT of the head, chest x-ray, shoulder x-ray and pelvis x-ray that all resulted without significant findings or acute abnormalities. Troponins were negative. BNP was normal. No electrolyte abnormalities were noted and the patient was without any signs of infection. The patient was subsequently admitted to observation for continued monitoring. The patient had no events overnight and subsequent day received an echocardiogram, which showed an ejection fraction of 55% to 60% with findings suggestive of diastolic dysfunction as well as mild mitral and tricuspid regurgitation. This was consistent with the patient's previous echocardiogram. The patient was informed of these findings and was agreeable with discharge. At the time of discharge, the patient continued to deny any chest pain, shortness of breath, lightheadedness, or dizziness and was eager to return home. Return precautions were discussed and the patient expressed understanding. DISPOSITION: Stable. DISCHARGE INSTRUCTIONS: 1. Location: Home. 2. Diet: Heart healthy, carb conscious. 3. Activity: As tolerated. 4. Followup: PCP within 7 days. Job ID: [id number] MTDD
== END 2018-12-07 16:43 | disposition home or self-care (01) ==
LOC: ERS 19:44 → 2SW 12-07 00:11
PROVIDERS: ADMIT Student in an Organized Health Care Education/Training Program; ATTEND Student in an Organized Health Care Education/Training Program
DX: R55 Syncope and collapse (principal); M19.90 Unspecified osteoarthritis, unspecified site; M51.26 Other intervertebral disc displacement, lumbar region; G47.33 Obstructive sleep apnea (adult) (pediatric); E11.42 Type 2 diabetes mellitus with diabetic polyneuropathy; E11.65 Type 2 diabetes mellitus with hyperglycemia; N40.0 Benign prostatic hyperplasia without lower urinary tract symptoms; N32.81 Overactive bladder; Z86.711 Personal history of pulmonary embolism; Z79.82 Long term (current) use of aspirin; Z79.84 Long term (current) use of oral hypoglycemic drugs; Z79.899 Other long term (current) drug therapy; W18.30XA Fall on same level, unspecified, initial encounter; Y93.89 Activity, other specified; Y92.096 Garden or yard of other non-institutional residence as the place of occurrence of the external cause
CPT/HCPCS: 70450; 71045; 72170; 73030; 80053; 81003; 82962; 83690; 83735; 83880; 84484; 85025; 93005; 93306; 96374; 97116; 97139; 99285; G0378 ×2; 36415; 36416; J2270

== ENCOUNTER 2019-01-29 19:30 | Outpatient (CLI) | payer MEDICARE, MEDICAID | END 2019-01-29 19:31 | disposition home or self-care (01) | LOC: SLEEPLAB 19:30 | PROVIDERS: ATTEND Family Medicine | DX: G47.33 Obstructive sleep apnea (adult) (pediatric) (principal) | CPT/HCPCS: 95810 ==

== ENCOUNTER 2019-05-02 16:13 | Emergency (ER) | payer MEDICARE, MEDICAID | END 2019-05-02 16:45 | disposition home or self-care (01) | LOC: ERS 16:13 | DX: S60.453A Superficial foreign body of left middle finger, initial encounter (principal); I10 Essential (primary) hypertension; E11.42 Type 2 diabetes mellitus with diabetic polyneuropathy; Z86.73 Personal history of transient ischemic attack (TIA), and cerebral infarction without residual deficits; Z86.711 Personal history of pulmonary embolism; W45.8XXA Other foreign body or object entering through skin, initial encounter; Y92.096 Garden or yard of other non-institutional residence as the place of occurrence of the external cause | CPT/HCPCS: 10120 ==

== ENCOUNTER 2019-05-16 13:48 | Emergency (ER) | payer MEDICARE, MEDICAID ==
[2019-05-16] MEDS ORDERED: Bacitracin 1 PK ONE (14:49)
== END 2019-05-16 14:40 | disposition home or self-care (01) ==
LOC: ERS 13:48
DX: L73.9 Follicular disorder, unspecified (principal); E11.9 Type 2 diabetes mellitus without complications; Z86.73 Personal history of transient ischemic attack (TIA), and cerebral infarction without residual deficits; Z86.711 Personal history of pulmonary embolism; I10 Essential (primary) hypertension
CPT/HCPCS: 99282

== ENCOUNTER 2019-07-28 11:13 | Emergency (ER) | payer MEDICARE, MEDICAID ==
[2019-07-28] MEDS ORDERED: Morphine 4 MG/ML VIAL ONE ×3 (13:05→13:06)
--- NOTE | 2019-07-28 13:20 | RAD ---
FRONTAL AND LATERAL IMAGING CHEST: Date: 07-28-2019 Comparison: 12-06-2018 History: Difficulty breathing. Upper chest pain. Recent fall. FINDINGS: There is atherosclerotic calcification of the aortic arch. Stable mild increased linear interstitial density. Descending thoracic aorta is tortuous and prominent. Old left sided rib fractures are suspected involving the 3rd, 4th, 5th and 6th ribs. No focal consoli dation or alveolar edema. No evidence for pneumothorax or pleural fluid. The lungs are hyperinflated on the lateral exam suggesting air trapping. IMPRESSION: Interstitial prominence and pulmonary hyperinflation suggests COPD in the proper clinical setting. No acute findings are apparent. If symptoms persist, CT is advised. POS: [facility]
== END 2019-07-28 13:28 | disposition home or self-care (01) ==
LOC: ERS 11:13
DX: S20.212A Contusion of left front wall of thorax, initial encounter (principal); S20.211A Contusion of right front wall of thorax, initial encounter; S50.811A Abrasion of right forearm, initial encounter; I10 Essential (primary) hypertension; E11.42 Type 2 diabetes mellitus with diabetic polyneuropathy; Z86.73 Personal history of transient ischemic attack (TIA), and cerebral infarction without residual deficits; Z87.891 Personal history of nicotine dependence; W19.XXXA Unspecified fall, initial encounter
CPT/HCPCS: 71046; 96372; J2270

== ENCOUNTER 2020-09-22 17:55 | Emergency (ER) | payer MEDICARE, MEDICAID ==
[2020-09-22] MEDS ORDERED: Bacitracin 1 PK ONE (20:53)
[2020-09-22] MEDS ORDERED: HYDROcodone/Acetaminophen 5/325 mg Tablet ONE (21:12)
== END 2020-09-22 22:33 | disposition home or self-care (01) ==
LOC: ERS 17:55
DX: S92.354A Nondisplaced fracture of fifth metatarsal bone, right foot, initial encounter for closed fracture (principal); S00.33XA Contusion of nose, initial encounter; S80.11XA Contusion of right lower leg, initial encounter; S60.812A Abrasion of left wrist, initial encounter; S60.811A Abrasion of right wrist, initial encounter; E11.9 Type 2 diabetes mellitus without complications; I10 Essential (primary) hypertension; Z87.891 Personal history of nicotine dependence; V89.2XXA Person injured in unspecified motor-vehicle accident, traffic, initial encounter
CPT/HCPCS: 36416; 70450; 72125

== ENCOUNTER 2020-10-15 14:28 | Emergency (ER) | payer MEDICARE, OTHER ==
[2020-10-15 15:28] LABS: #Eosinphils 0.3 thou/uL (0.0-0.7); #Lymphocytes 1.7 thou/uL (1.20-3.40); #Monocytes 0.7 thou/uL (0.11-0.59); #Neutrophils 3.6 thou/uL (1.40-6.50); %Basophils 0.6 % (0.0-1.0); %Eosinophils 4.8 % (0.0-10.0); %Lymphocytes 26.6 % (21.0-51.0); %Monocytes 11.4 % (0.0-10.0); %Neutrophils 56.5 % (42.0-75.0); Hemoglobin 12.8 g/dL (14.0-18.0); Mean Corpuscular HGB CONC 34.6 g/dL (32.0-36.0); Mean Corpuscular Hemoglobin 30.3 pg (27.0-31.0); Mean Corpuscular Volume 87.4 fL (78.0-98.0); Mean Platelet Volume 7.1 fL (7.4-10.4); Platelet Count 192 thou/uL (130-400); RBC Distribution Width 12.2 % (11.5-14.5); Red Blood Cell (RBC) Count 4.23 mill/uL (4.70-6.10); White Blood Cell (WBC) Count 6.3 thou/uL (4.8-10.8)
[2020-10-15 15:48] LABS: ALT (SGPT) 16 U/L (8-55); AST (SGOT) 16 U/L (5-34); Albumin 3.4 g/dL (3.4-4.8); Alkaline Phosphatase 119 U/L (40-110); Anion Gap 10 mmol/L (10-20); BUN (Urea Nitrogen) 16 mg/dL (8.4-25.7); Bilirubin, Total 0.5 mg/dL (0.2-1.2); Calc. Creatinine Clearance 0 mL/min (70-130); Calcium 8.8 mg/dL (7.8-10.44); Carbon Dioxide 27 mmol/L (23-31); Chloride 107 mmol/L (98-107); Globulin 2.9 g/dL (2.4-3.5); Glucose 279 mg/dL (83-110); Potassium 3.9 mmol/L (3.5-5.1); Protein, Total 6.3 g/dL (5.8-8.1); Sodium 140 mmol/L (136-145)
[2020-10-15 16:45] LABS: Bilirubin Negative (Negative); Blood, Urine Negative (Negative); Clarity Clear (Clear); Glucose, Urine (Dipstick) 300 mg/dL (Negative); Ketone, Urine Negative (Negative); Leukocyte Negative Leu/uL (Negative); Nitrite Negative (Negative); Protein, Urine (Dipstick) Negative (Neg-Trace); Specific Gravity, Urine 1.016 (1.002-1.036); Urobilinogen Normal mg/dL (Less than 2)
== END 2020-10-15 16:31 ==
LOC: ERS 14:28
DX: M75.02 Adhesive capsulitis of left shoulder (principal); E11.65 Type 2 diabetes mellitus with hyperglycemia; I10 Essential (primary) hypertension; E11.42 Type 2 diabetes mellitus with diabetic polyneuropathy; Z87.891 Personal history of nicotine dependence; Z79.899 Other long term (current) drug therapy; W19.XXXA Unspecified fall, initial encounter
CPT/HCPCS: 36415; 36416; 70450; 72125; 80053; 81003; 84484; 85025; 93005

== ENCOUNTER 2021-07-23 10:37 | Emergency (ER) | payer MEDICARE, MEDICAID | END 2021-07-23 13:32 | disposition home or self-care (01) | LOC: ERS 10:37 | DX: S00.83XA Contusion of other part of head, initial encounter (principal); S50.811A Abrasion of right forearm, initial encounter; I10 Essential (primary) hypertension; E11.42 Type 2 diabetes mellitus with diabetic polyneuropathy; I26.99 Other pulmonary embolism without acute cor pulmonale; W18.12XA Fall from or off toilet with subsequent striking against object, initial encounter; Z86.12 Personal history of poliomyelitis; Z87.891 Personal history of nicotine dependence | CPT/HCPCS: 70450; 72125 ==

== ENCOUNTER 2021-10-08 11:01 | Emergency (ER) | payer MEDICARE, MEDICAID | END 2021-10-08 14:02 | disposition home or self-care (01) | LOC: ERS 11:01 | DX: S01.01XA Laceration without foreign body of scalp, initial encounter (principal); S80.212A Abrasion, left knee, initial encounter; S80.211A Abrasion, right knee, initial encounter; I10 Essential (primary) hypertension; E11.42 Type 2 diabetes mellitus with diabetic polyneuropathy; Z86.73 Personal history of transient ischemic attack (TIA), and cerebral infarction without residual deficits; Z86.711 Personal history of pulmonary embolism; W18.30XA Fall on same level, unspecified, initial encounter; Z79.84 Long term (current) use of oral hypoglycemic drugs; Z79.899 Other long term (current) drug therapy | CPT/HCPCS: 12001; 70450; 93005 ==

== ENCOUNTER 2022-02-15 15:13 | Emergency (ER) | payer OTHER, MEDICAID | END 2022-02-15 17:18 | disposition home or self-care (01) | LOC: ERS 15:13 | DX: M54.2 Cervicalgia (principal); E11.40 Type 2 diabetes mellitus with diabetic neuropathy, unspecified; I10 Essential (primary) hypertension; W19.XXXA Unspecified fall, initial encounter; Z87.891 Personal history of nicotine dependence | CPT/HCPCS: 70450; 72125 ==

== ENCOUNTER 2022-03-03 21:39 | Emergency (ER) | payer MEDICAID, OTHER ==
[2022-03-03] MEDS ORDERED: Morphine 2 MG/ML VIAL ONE (22:43)
[2022-03-03] MEDS ORDERED: Ketorolac Tromethamine 30 MG/ML VIAL ONE (22:43)
[2022-03-04] MEDS ORDERED: Morphine 4 MG/ML VIAL ONE (00:29)
[2022-03-04 00:41] LABS: #Eosinphils 0.1 thou/uL (0.0-0.7); #Lymphocytes 1.6 thou/uL (1.20-3.40); #Monocytes 0.8 thou/uL (0.11-0.59); #Neutrophils 7.4 thou/uL (1.40-6.50); %Basophils 0.1 % (0.0-1.0); %Eosinophils 1.1 % (0.0-10.0); %Lymphocytes 16.5 % (21.0-51.0); %Monocytes 7.7 % (0.0-10.0); %Neutrophils 74.5 % (42.0-75.0); Hemoglobin 13.6 g/dL (14.0-18.0); Mean Corpuscular HGB CONC 33.2 g/dL (32.0-36.0); Mean Corpuscular Hemoglobin 29.3 pg (27.0-31.0); Mean Corpuscular Volume 88.2 fl (78.0-98.0); Mean Platelet Volume 7.7 fL (7.4-10.4); Platelet Count 155 10x3/uL (130-400); RBC Distribution Width 12.3 % (11.5-14.5); Red Blood Cell (RBC) Count 4.65 mill/uL (4.70-6.10); White Blood Cell (WBC) Count 9.9 10x3/uL (4.8-10.8)
[2022-03-04 01:05] LABS: ALT (SGPT) 30 U/L (8-55); AST (SGOT) 29 U/L (5-34); Albumin 3.7 g/dL (3.4-4.8); Alkaline Phosphatase 100 U/L (40-110); Anion Gap 12 mmol/L (10-20); BUN (Urea Nitrogen) 23 mg/dL (8.4-25.7); Bilirubin, Total 0.8 mg/dL (0.2-1.2); Calc. Creatinine Clearance 0 mL/min (70-130); Calcium 8.9 mg/dL (7.8-10.44); Carbon Dioxide 25 mmol/L (23-31); Chloride 111 mmol/L (98-107); Estimated GFR 85; Globulin 2.4 g/dL (2.4-3.5); Glucose 160 mg/dL (83-110); Potassium 4.7 mmol/L (3.5-5.1); Protein, Total 6.1 g/dL (5.8-8.1); Sodium 143 mmol/L (136-145)
== END 2022-03-04 02:07 | disposition home or self-care (01) ==
LOC: ERS 21:39
DX: S22.32XA Fracture of one rib, left side, initial encounter for closed fracture (principal); E11.9 Type 2 diabetes mellitus without complications; I10 Essential (primary) hypertension; W19.XXXA Unspecified fall, initial encounter; Z87.891 Personal history of nicotine dependence
CPT/HCPCS: 36415; 70450; 71045; 71250; 80053; 84484; 85025; 93005; 96374; 96375; 96376; J1885; J2270; J2272

== ENCOUNTER 2022-06-06 13:51 | Emergency (ER) | payer OTHER ==
[2022-06-06 15:59] LABS: #Eosinphils 0.2 thou/uL (0.0-0.7); #Lymphocytes 2.3 thou/uL (1.20-3.40); #Monocytes 0.8 thou/uL (0.11-0.59); #Neutrophils 4.7 thou/uL (1.40-6.50); %Basophils 0.4 % (0.0-1.0); %Eosinophils 3.1 % (0.0-10.0); %Lymphocytes 28.5 % (21.0-51.0); %Monocytes 9.8 % (0.0-10.0); %Neutrophils 58.2 % (42.0-75.0); Hemoglobin 14.7 g/dL (14.0-18.0); Mean Corpuscular HGB CONC 34.5 g/dL (32.0-36.0); Mean Corpuscular Hemoglobin 31.1 pg (27.0-31.0); Mean Corpuscular Volume 90.2 fl (78.0-98.0); Mean Platelet Volume 7.3 fL (7.4-10.4); Platelet Count 163 10x3/uL (130-400); RBC Distribution Width 12.2 % (11.5-14.5); Red Blood Cell (RBC) Count 4.71 mill/uL (4.70-6.10)
[2022-06-06] MEDS ORDERED: HYDROcodone/Acetaminophen 5/325 mg Tablet ONE (16:04)
[2022-06-06 16:23] LABS: ALT (SGPT) 30 U/L (8-55); AST (SGOT) 20 U/L (5-34); Albumin 3.9 g/dL (3.4-4.8); Alkaline Phosphatase 138 U/L (40-110); Anion Gap 10 mmol/L (10-20); BUN (Urea Nitrogen) 20 mg/dL (8.4-25.7); Bilirubin, Total 0.7 mg/dL (0.2-1.2); Calc. Creatinine Clearance 0 mL/min (70-130); Calcium 9.3 mg/dL (7.8-10.44); Carbon Dioxide 28 mmol/L (23-31); Chloride 108 mmol/L (98-107); Estimated GFR 83; Globulin 2.7 g/dL (2.4-3.5); Glucose 172 mg/dL (83-110); Potassium 4.3 mmol/L (3.5-5.1); Protein, Total 6.6 g/dL (5.8-8.1); Sodium 142 mmol/L (136-145)
== END 2022-06-06 16:47 | disposition home or self-care (01) ==
LOC: ERS 13:51
DX: L03.114 Cellulitis of left upper limb (principal); E11.40 Type 2 diabetes mellitus with diabetic neuropathy, unspecified; I10 Essential (primary) hypertension; Z87.891 Personal history of nicotine dependence
CPT/HCPCS: 36415; 80053; 85025; 85652; 86140

== ENCOUNTER 2022-08-04 10:56 | Emergency (ER) | payer OTHER, MEDICAID ==
[2022-08-04] MEDS ORDERED: Acetaminophen 500 MG TAB ONE (12:08)
== END 2022-08-04 14:34 | disposition home or self-care (01) ==
LOC: ERS 10:56
DX: S70.02XA Contusion of left hip, initial encounter (principal); G62.9 Polyneuropathy, unspecified; F03.90 Unspecified dementia, unspecified severity, without behavioral disturbance, psychotic disturbance, mood disturbance, and anxiety; W18.30XA Fall on same level, unspecified, initial encounter

== ENCOUNTER 2023-11-08 17:47 | Emergency (ER) | payer OTHER, MEDICAID ==
[2023-11-08] MEDS ORDERED: Ketorolac Tromethamine 30 MG (1 mL) VIAL ONE (19:33)
== END 2023-11-08 20:53 | disposition home or self-care (01) ==
LOC: ERS 17:47
DX: M25.552 Pain in left hip (principal)
CPT/HCPCS: 73502; 99283; J1885

== ENCOUNTER → 2024-01-16 | Outpatient (CLI) | payer OTHER | LOC: BICMRI 13:19 | PROVIDERS: ATTEND Orthopaedic Surgery Hand Surgery | DX: M47.22 Other spondylosis with radiculopathy, cervical region (principal); M48.02 Spinal stenosis, cervical region; M48.03 Spinal stenosis, cervicothoracic region | CPT/HCPCS: 72141 ==